=== PATIENT | female | born 1955 | race Caucasian/White ===

== ENCOUNTER 2018-02-20 05:39 | Observation (INO) ==
--- NOTE | 2018-02-14 14:36 | MH ---
cc: Brenda Victoria MD DATE OF ADMISSION: 02/20/2018 DATE OF ADMISSION: 02/20/2018 ADMITTING DIAGNOSIS: Osteoarthritic degeneration, right knee. REASON FOR ADMISSION: Now being admitted for a right total knee arthroplasty. HISTORY OF PRESENT ILLNESS: This pleasant 62-year-old female is being admitted today for a right total knee arthroplasty due to severe painful osteoarthritic degeneration right knee with valgus deformity. OTHER PAST HISTORY: Patient has just arthritis. MEDICATIONS: Only takes a low-dose aspirin. PREVIOUS SURGERY: She has had arthroscopy on her left knee in the past. REVIEW OF SYSTEMS: Noncontributory. FAMILY HISTORY: Noncontributory. SOCIAL HISTORY: She does not smoke or drink. ALLERGIES: ALLERGIC TO PENICILLIN. PHYSICAL EXAMINATION: GENERAL: We find a 62-year-old female, well-developed, well-nourished, oriented x 3, complaining of pain in her right knee. VITAL SIGNS: Blood pressure 128/82, pulse 75 and regular, respirations 16, temperature 98.2, pulse oximetry 96% on room air. HEAD, EYES, EARS, NOSE AND THROAT: Eyes PERRLA, EOMI. Ears, nose and mouth clear. NECK: Supple. LUNGS: Clear. HEART: Regular rate. ABDOMEN: Soft, positive bowel sounds, nontender. EXTREMITIES: Reveal the right knee to have loss of extension by 10 degrees and 15 degrees of genu valgus deformity. She is neurovascularly intact to her toes. IMPRESSION: Severe painful arthritic degeneration, right knee, with valgus deformity. PLAN: Admission for right total knee arthroplasty today. The patient was given prescription for postoperative pain and anticoagulation control in the office and plans on going home after surgical stay in the hospital. MD LADONNA Hunter/CELIA , 02:14 PM , 02:35 PM
[2018-02-20] MEDS ORDERED: Clindamycin 900 mg/NS Premix 900 MG/50 ML PIGGYBACK IV.SIG SCH (06:15)
[2018-02-20] MEDS ORDERED: Chlorhexidine 4% Topical 120 APPLIC/120 ML Bottle TOPICAL SCH (06:15)
[2018-02-20] MEDS ORDERED: Chlorhexidine Gluconate 2% 1 Pack (2 Cloths) TOPICAL SCH (06:15)
[2018-02-20] MEDS ORDERED: Metoprolol Tartrate 25 MG Tablet PO SCH (06:15)
[2018-02-20] MEDS ORDERED: Bupivacaine Liposomal PF 1.3% Inj 20 ML Vial ONE (06:40)
[2018-02-20] MEDS ORDERED: Bupivacaine PF 0.25% Inj 30 ML Vial ONE (06:41)
[2018-02-20] MEDS ORDERED: Vancomycin Inj 1 GM/200 ML PIGGYBACK IV.SIG SCH (07:00)
[2018-02-20] MEDS ORDERED: Sodium Chlor 0.9% Inj 500 ML IV.SIG SCH (07:00)
[2018-02-20] MEDS ORDERED: Bupivacaine/Dextrose 0.75% Inj 2 ML Ampul ONE (07:24)
[2018-02-20] MEDS ORDERED: TRANEXAMIC ACID IV.SIG SCH (08:00)
[2018-02-20] MEDS ORDERED: SODIUM CHLOR 0.9% IV.SIG SCH (08:00)
[2018-02-20] MEDS ORDERED: Sodium Chlor 0.9% Inj 80 ML, Bupivacaine Liposo PF 1.3% Inj 20 ML P-ARTICULR SCH ×2 (08:00)
[2018-02-20] MEDS ORDERED: Morphine Inj 4 MG/ML Vial IV.PUSH PRN (08:15)
[2018-02-20] MEDS ORDERED: Bisacodyl 10 MG Supp RECTAL PRN (08:15)
[2018-02-20] MEDS ORDERED: Post-op Orders (for Pharmacy) OTHER STA (08:15)
[2018-02-20] MEDS ORDERED: Propofol Inj 500 MG/50 ML Vial ONE ×2 (09:08→09:13)
--- NOTE | 2018-02-20 10:47 | MP ---
cc: Brenda Victoria MD DATE OF OPERATION: 02/20/2018 PREOPERATIVE DIAGNOSIS: Osteoarthritic degeneration of the right knee. POSTOPERATIVE DIAGNOSIS: Osteoarthritic degeneration of the right knee. PROCEDURE PERFORMED: Right total knee arthroplasty using Consensus components, size 4 femur, 2 tibia, 10 insert and 2 patella with 2 batches of gentamicin-impregnated cement. SURGEON: Brenda Victoria MD STEAM FRAME OPERATOR: HUNG Card ANESTHESIA: Spinal and block. DESCRIPTION OF PROCEDURE: After successful induction of anesthesia, the patient is placed on the operating room table in the supine position. The knee is prepped and draped in the usual manner. A tourniquet is inflated at the upper thigh and set to 300 mmHg pressure after exsanguination of the lower extremity. A longitudinal incision is made extending from 3 inches proximal to the superior pole of the patella, across the patella in longitudinal fashion, and down past the insertion of the tibial tubercle into the proximal tibia. The incision is carried down through subcutaneous tissue along the medial aspect of the patella and retinaculum, down through the capsule to expose the knee joint. The patella and patellar tendon are freed up enough to allow the patella to be inverted and retracted off the lateral side of the knee joint. The knee joint is left exposed. Small osteophytes are removed. All soft tissue is removed to allow proper position of the femoral and tibial cutting jig guide. The first femoral jig is then inserted along the distal end of the femur after first measuring to decide whether this is a small, medium, or large component. The notch is then drilled and the tibial cutting guide inserted into the femoral cutting guide, along with the ankle brace to allow for proper measurement of the tibial cutting surface that needed to be resected. Pins are inserted into the tibial cutting jig and femoral cutting jig to hold them in place. An oscillating saw is then used to resect the surface of the tibia. The surface of the tibia is then completely removed using sharp and blunt dissection. The anterior and posterior cuts of the femur are then made as well using an oscillating saw through the cutting guide. All guides are then removed and the varus/valgus angulation cutting guide applied to the femur for proper measurement of the proper amount of valgus. The anterior cutting guide for the femur is then inserted at the anterior femoral cuts made. Next, the first block trial is inserted into the femur to allow for proper condyle drill holes to be made which are then made followed by removal of the bone between the condyles using an oscillating saw as well as the bone removed at the most posterior surface of the condyle. After this, this guide is removed and the chamfer cuts made using the chamfer cutting guide from both anterior and posterior. Next, the femoral trial is then inserted, the tibial surface reflected anterior to expose the tibial surface and a tibial stem guide is inserted after first measuring for a standard, standard plus, large, or large plus surface to be used. After the stem is impacted the trial tibial surface is applied followed by the trial meniscal components. After full range of motion is found with the appropriate length meniscal components varying the patella is prepared by resecting the posterior aspect of the patella using an oscillating saw, inserting a trial. The trial is then removed and the cruciate cutting guide applied using the bur to cut the cruciate cuts. After cruciate cuts are made all trials are removed. The wound is irrigated copiously with antibiotic solution and Water Pik and the actual components inserted into place using the aforementioned components. After the cement has hardened and the components are found to have full range of motion with no instability, the tourniquet is deflated, total tourniquet time being 62 minutes at 300 mmHg pressure. 60 mL Exparel used around the knee joint for extra pain control. The wound again is irrigated copiously with antibiotic solution, meticulous hemostasis achieved. After meticulous hemostasis achieved, deep fascia approximated with a running #2 Quill, subcutaneous tissue approximated using interrupted and running 2-0 and 4-0 Monocryl suture and the Prineo sterile dressing. Two Autovac tubes inserted, followed by closure of the deep fascia with both running and interrupted #1 Vicryl suture, subcutaneous tissue approximated using interrupted 2-0 Vicryl sutures, and skin approximated with renea. Wet and dry dressing is applied to the wound followed by Xeroform gauze, sterile dressing and knee immobilizer. The patient tolerated the procedure well and left the operating room in satisfactory condition. ESTIMATED BLOOD LOSS: 200 mL. COUNTS: Sponge and suture counts were correct. DRAINS: No drain utilized. COMPONENTS: The components used were Consensus components, size 4 femur, 2 tibia, 10 insert and 2 patella with 2 batches of gentamicin-impregnated cement. HUNG Card, was present during the entire procedure to include patient positioning and the procedure. The medical necessity of the nurse practitioner, chemical laboratory assistant was indicated in this case due to the surgical complexity of the case itself. During the surgical case, the registered nurse surgical services was working the back table while my instructor adjunct surgical technician HUNG was directly assisting me. J. MD LADONNA Mesa/DENISE , 10:30 AM , 10:37 AM
--- NOTE | 2018-02-20 11:28 | XR ---
EXAM DATE: 02/20/2018 11:25 AM EDT AGE/SEX: 62 years / Female INDICATIONS: Post right knee replacement. CLINICAL DATA: This is the patient's initial encounter. Patient reports that signs and symptoms have been present for 1 day and indicates a pain score of Nonresponsive. MEDICAL/SURGICAL HISTORY: Non-responsive. Non-responsive. COMPARISON: No prior exams available for comparison. FINDINGS: A right total knee arthroplasty is noted. Tibial and femoral components appear well seated. Mild soft tissue swelling anteriorly. Small amount of subcutaneous air is noted. CONCLUSION: Satisfactory appearance of right total knee arthroplasty. Electronically signed by: Henry Prater MD 02/20/2018 11:26 AM EDT
[2018-02-20] MEDS ORDERED: Tranexamic Acid Inj 1,000 MG in Sodium Chlor 0.9% Inj 100 ML IV.SIG SCH (11:30)
[2018-02-20] MEDS ORDERED: *Meperidine Inj 25 MG/ML Vial PERIprocedural Use ONLY ONE (12:11)
[2018-02-20] MEDS ORDERED: *morphine SULFATE 10 MG/ML PERIprocedure ONLY ONE (12:46)
[2018-02-20] MEDS ORDERED: HYDROmorphone PF Inj 2 MG/ML Vial ONE (13:11)
[2018-02-20] MEDS ORDERED: fentaNYL Citrate Inj 100 MCG/2 ML Ampul ONE (15:03)
--- NOTE | 2018-02-20 15:06 | P.DCO ---
- Physical Therapy Order: Evaluate and treat, Improve ambulation, Strength and gait training - Certification I have seen patient Dena Lyons on 02/20/18. My clinical findings support the need for the requested home health care services because: High risk of falls I certify that my clinical findings support that this patient is homebound because: Post-op weakness, Unsteady gait/balance, Unsafe to leave home unassisted
[2018-02-20] MEDS: Senna/Docusate Sodium 8.6/50 MG Tablet PO SCH ×2 (15:09→19:59)
[2018-02-20] MEDS: Multivitamin/Minerals Therapeutic Tablet PO SCH ×2 (15:09→19:59)
[2018-02-20] MEDS: Clindamycin 900 mg/NS Premix 900 MG/50 ML PIGGYBACK IV.SIG SCH (15:31)
[2018-02-20 15:35] VITALS: RESP 18
[2018-02-21] MEDS: Clindamycin 900 mg/NS Premix 900 MG/50 ML PIGGYBACK IV.SIG SCH ×2 (00:14→10:15)
[2018-02-21 07:15] LABS: Hematocrit 34.5 % (35.0-46.0); Hemoglobin 11.4 gm/dL (11.6-15.3)
[2018-02-21] MEDS: Senna/Docusate Sodium 8.6/50 MG Tablet PO SCH (10:15)
[2018-02-21] MEDS: Multivitamin/Minerals Therapeutic Tablet PO SCH (10:15)
[2018-02-21 11:17] VITALS: BP 136/61; PULSE 70; TEMP 98; O2SAT 93
--- NOTE | 2018-02-21 11:20 | P.PNOP ---
Subjective Interval history: Patient is complaining of moderate pain today but ready to go home. Physical Exam Vital signs: Vital Signs 02/20/18 11:30 02/20/18 11:45 02/20/18 12:00 Temperature Pulse Rate 46 L 49 L 52 L Respiratory Rate 15 15 20 Blood Pressure 145/68 H 123/68 126/72 Pulse Oximetry 100 100 100 02/20/18 12:15 02/20/18 12:30 02/20/18 13:00 Temperature Pulse Rate 55 L 65 66 Respiratory Rate 20 18 18 Blood Pressure 120/65 133/73 110/71 Pulse Oximetry 100 100 96 02/20/18 13:30 02/20/18 14:00 02/20/18 15:00 Temperature 98.4 F 98.5 F Pulse Rate 80 76 Respiratory Rate 14 18 Blood Pressure 136/78 123/76 Pulse Oximetry 95 97 94 L 02/20/18 20:18 02/20/18 23:00 02/21/18 03:50 Temperature 98.1 F 97.4 F L 97.8 F Pulse Rate 84 72 67 Respiratory Rate 18 18 18 Blood Pressure 124/87 115/65 111/65 Pulse Oximetry 97 94 L 97 02/21/18 08:00 Temperature 98 F Pulse Rate 70 Respiratory Rate 18 Blood Pressure 136/61 Pulse Oximetry 93 L Intake & Output 02/20/18 02/21/18 02/21/18 18:59 06:59 18:59 Intake Total 2059 / 2059 530 / 530 Output Total 200 / 200 Balance 1859 / 1859 530 / 530 Weight 87.09 kg 87.09 kg Intake: IV 259 / 259 50 / 50 LR 1000 mL Inj 1,000 ML @ 80 209 / 209 mls/hr IV.CONT .[id number] RHONDA Rx# :[id number] Cleocin 900 mg/NS Premix 900 mg 50 / 50 50 / 50 In 50 ml @ 100 mls/hr IV.SIG Q8H RHONDA Rx#:[id number] Oral 200 / 200 480 / 480 Anesthesia Amount 1600 / 1600 Output: Estimated Blood Loss 200 / 200 Other: # Voids 3 Date of Last Bowel Movement 02/20/18 02/20/18 # Bowel Movements 0 Results - Labs CBC & Chem 7: 02/21/18 06:17 Laboratory Results - last 24 hr 02/21/18 06:17 Hgb 11.4 L Hct 34.5 L - Imaging Impressions Knee X-Ray 02/20/18 08:15 CONCLUSION: Satisfactory appearance of right total knee arthroplasty. Assessment and Plan - Attending Attestation Attending Attestation: Dressing is dry and intact. She is neurovascular intact to her toes and has no calf tenderness. Plan is for patient to be discharged today after physical therapy with instructions for home health care and physical therapy and follow- up in the office.
== END 2018-02-21 13:37 | disposition home health service (06) ==
LOC: HSDC 05:39 → N06 05:39
PROVIDERS: ADMIT Surgery; ATTEND Surgery